=== PATIENT | male | born 1985 | race African-American/Black ===

== ENCOUNTER 2022-07-14 09:32 | Emergency (ER) | payer MEDICAID ==
[~2022-07-14] VITALS: Ht 167.6 cm; Wt 81.6 kg
--- NOTE | 2022-07-14 09:40 | NUR ---
Pt ambulatory to room 1B. Pt states he has been walking "all night" and his feet hurt. Also c/o discomfort to his epigastric area but denies pain. Pt was seen and evaluated by . Translation (Yemeni) by Karmen from asmitting dept.
[2022-07-14] MEDS ORDERED: IBUP-1955 PO (09:44)
[2022-07-14] MEDS ORDERED: AMOX500C2 PO (09:44)
[2022-07-14] MEDS ORDERED: IBUPROFEN 800 MG TABLET PO ONE (09:45)
== END 2022-07-14 10:30 | disposition home or self-care (01) ==
LOC: ER 09:32
DX: K08.89 Other specified disorders of teeth and supporting structures (principal); M79.672 Pain in left foot; M79.671 Pain in right foot; Z59.00 Homelessness unspecified; F17.200 Nicotine dependence, unspecified, uncomplicated; K02.9 Dental caries, unspecified
CPT/HCPCS: A4663